=== PATIENT | male | born 1955 | race Caucasian/White ===

== ENCOUNTER → 2016-09-28 | Outpatient (REF) | payer MEDICARE ==
[~2016-09-28] MED LIST: HYDR25TAB PO; IBUP80TA PO; LOSA100T36 PO; NEUR300C PO; OMEP40CA2 PO; TIZA4CAP3 PO
[2016-09-28 14:12] LABS: ALBUMIN 4.2 GM/DL (3.2-5.2); ALBUMIN/GLOBULIN RATIO 1.35 (1.00-1.93); ALKALINE PHOSPHATASE 104 U/L (45-117); ALT/SGPT 31 U/L (12-78); ANION GAP 9 MEQ/L (8-16); AST/SGOT 27 U/L (15-37); BILIRUBIN,TOTAL 0.4 MG/DL (0.2-1.0); BLOOD UREA NITROGEN 18 MG/DL (7-18); CALCIUM LEVEL 9.7 MG/DL (8.5-10.1); CARBON DIOXIDE LEVEL 27 MEQ/L (21-32); CHLORIDE LEVEL 103 MEQ/L (98-107); CHOLESTEROL LEVEL 204 MG/DL (<200); GLOMERULAR FILTRATION RATE > 60.0 (>56); GLUCOSE, FASTING 92 MG/DL (70-105); POTASSIUM SERUM 4.2 MEQ/L (3.5-5.1); SODIUM LEVEL 139 MEQ/L (136-145); TOTAL PROTEIN 7.3 GM/DL (6.4-8.2); TRIGLYCERIDES LEVEL 316 MG/DL (<150)
[2016-10-09 14:15] LABS: BENZODIAZEPINES, URINE SCREEN Negative ng/mL (Cutoff=200); METHADONE, URINE SCREEN Negative ng/mL (Cutoff=300); OPIATES, URINE Positive ng/mL (Cutoff=300); pH, URINE 6.9 (4.5-8.9)
== END ==
LOC: M LAB REF 13:08
PROVIDERS: ATTEND Family Medicine Addiction Medicine
DX: M60.819 Other myositis, unspecified shoulder (principal); I10 Essential (primary) hypertension; Z12.5 Encounter for screening for malignant neoplasm of prostate

== ENCOUNTER → 2017-03-12 | Outpatient (REF) | payer MEDICARE ==
[2017-03-12 13:55] LABS: BASO # 0.1 10^3/uL (0.0-0.2); BASO % 0.5 % (0.0-1.0); EOS # 0.1 10^3/uL (0.0-0.50); EOS % 1.1 % (0.0-3.0); HEMOGLOBIN 15.3 g/dl (14.0-18.0); IMMATURE GRANULOCYTE # 0.1 10^3/uL (0-0); IMMATURE GRANULOCYTE % 0.4 % (0-0); LYMPH # 2.8 10^3/uL (1.5-4.5); LYMPH % 20.9 % (24.0-44.0); MEAN CORPUSCULAR HEMOGLOBIN 30.6 pg (27.0-33.0); MEAN CORPUSCULAR HGB CONC 34.8 g/dl (32.0-36.5); MONO # 0.8 10^3/uL (0.0-0.8); MONO % 5.8 % (0.0-5.0); NEUTROPHILS # 9.5 10^3/uL (1.8-7.7); NEUTROPHILS % 71.3 % (36.0-66.0); PLATELET COUNT, AUTOMATED 202 10^3/uL (150-450); RED CELL DISTRIBUTION WIDTH 13.2 % (11.5-14.5); WHITE BLOOD COUNT 13.3 10^3/uL (4.0-10.0)
[2017-03-12 14:25] LABS: ALBUMIN 4.4 GM/DL (3.2-5.2); ALBUMIN/GLOBULIN RATIO 1.52 (1.00-1.93); ALKALINE PHOSPHATASE 84 U/L (45-117); ALT/SGPT 24 U/L (12-78); ANION GAP 7 MEQ/L (8-16); AST/SGOT 30 U/L (7-37); BILIRUBIN,TOTAL 0.6 MG/DL (0.2-1.0); BLOOD UREA NITROGEN 13 MG/DL (7-18); CALCIUM LEVEL 9.5 MG/DL (8.8-10.2); CARBON DIOXIDE LEVEL 27 MEQ/L (21-32); CHLORIDE LEVEL 105 MEQ/L (98-107); CHOLESTEROL LEVEL 197 MG/DL (<200); CHOLESTEROL RISK RATIO 3.126 (<5); GLOMERULAR FILTRATION RATE > 60.0 (>49); GLUCOSE, FASTING 89 MG/DL (80-110); HDL CHOLESTEROL 63 MG/DL (>40); LDL CHOLESTEROL 106.4 MG/DL (<100); NON-HDL-C 134 MG/DL; POTASSIUM SERUM 4.1 MEQ/L (3.5-5.1); SODIUM LEVEL 139 MEQ/L (136-145); THYROID STIMULATING HORMONE 0.897 uIU/ML (0.358-3.740); TOTAL PROTEIN 7.3 GM/DL (6.4-8.2); TRIGLYCERIDES LEVEL 138 MG/DL (<150)
[2017-03-13 11:48] LABS: HEPATITIS C VIRUS ABY INDEX 8.4 INDEX (<0.8)
[2017-03-14 10:14] LABS: HEPATITIS C QUANTITATION HCV Not Detected IU/mL (.)
[2017-03-16 08:06] LABS: HCV RNA NAA QUALITATIVE Negative (Negative)
== END ==
LOC: M LAB REF 13:27
DX: B18.2 Chronic viral hepatitis C (principal); I10 Essential (primary) hypertension
CPT/HCPCS: 84443

== ENCOUNTER → 2017-08-06 | Day surgery (SDC) | payer MEDICARE ==
[~2017-08-06] MED LIST changes: -HYDR25TAB PO; -IBUP80TA PO; +LIDOCAINE 2% INJ 100 MG/5 ML SDV (FOR ANES.) As Ordered; -LOSA100T36 PO; -NEUR300C PO; -OMEP40CA2 PO; +PROPOFOL 200 MG/20 ML VIAL As Ordered; -TIZA4CAP3 PO
[2017-08-06] MEDS: NS 1,000 ML IV (08:05)
== END | disposition home or self-care (01) ==
LOC: M OPP 07:29
DX: D12.2 Benign neoplasm of ascending colon (principal); K62.5 Hemorrhage of anus and rectum; I10 Essential (primary) hypertension; K21.9 Gastro-esophageal reflux disease without esophagitis; F17.210 Nicotine dependence, cigarettes, uncomplicated; Z79.891 Long term (current) use of opiate analgesic; Z79.899 Other long term (current) drug therapy; Z86.19 Personal history of other infectious and parasitic diseases; Z80.42 Family history of malignant neoplasm of prostate; Z80.0 Family history of malignant neoplasm of digestive organs
CPT/HCPCS: 45380

== ENCOUNTER → 2018-01-27 | Outpatient (REF) | payer MEDICARE ==
[2018-01-27 14:10] LABS: ALKALINE PHOSPHATASE 100 U/L (45-117); ALT/SGPT 22 U/L (12-78); ANION GAP 11 MEQ/L (8-16); AST/SGOT 25 U/L (7-37); BILIRUBIN,TOTAL 0.6 MG/DL (0.2-1.0); BLOOD UREA NITROGEN 10 MG/DL (7-18); CALCIUM LEVEL 8.7 MG/DL (8.8-10.2); CARBON DIOXIDE LEVEL 23 MEQ/L (21-32); CHLORIDE LEVEL 103 MEQ/L (98-107); CREATININE FOR GFR 0.96 MG/DL (0.70-1.30); GLOMERULAR FILTRATION RATE > 60.0 (>49); GLUCOSE, FASTING 118 MG/DL (70-100); POTASSIUM SERUM 3.7 MEQ/L (3.5-5.1); SODIUM LEVEL 137 MEQ/L (136-145); TRIGLYCERIDES LEVEL 104 MG/DL (<150)
[2018-01-27 14:11] LABS: ALBUMIN 3.5 GM/DL (3.2-5.2); ALBUMIN/GLOBULIN RATIO 1.17 (1.00-1.93); CHOLESTEROL LEVEL 157 MG/DL (<200); CHOLESTEROL RISK RATIO 2.962 (<5); HDL CHOLESTEROL 53 MG/DL (>40); LDL CHOLESTEROL 83 MG/DL (<100); NON-HDL-C 104 MG/DL; PROSTATIC SPECIFIC AG MONITOR 1.5 NG/ML (< 4.0); THYROID STIMULATING HORMONE 0.396 uIU/ML (0.358-3.740); TOTAL PROTEIN 6.5 GM/DL (6.4-8.2)
== END ==
LOC: M LAB REF 12:01
DX: I10 Essential (primary) hypertension (principal); N40.1 Benign prostatic hyperplasia with lower urinary tract symptoms
CPT/HCPCS: 84443

== ENCOUNTER → 2020-06-06 | Outpatient (REF) | payer MEDICARE ==
[~2020-06-06] MED LIST changes: +AMIT25TA17 PO; +AMLO1TAB24 PO; +GABA-282 PO; +HYDR-2541 PO; +IBUP80TA PO; -LIDOCAINE 2% INJ 100 MG/5 ML SDV (FOR ANES.) As Ordered; +LOSA100T50 PO; +NEUR300C PO; +OMEP40CA97 PO; +OXYC10TA3 PO; -PROPOFOL 200 MG/20 ML VIAL As Ordered; +TIZA4CAP PO
[2020-06-06 14:43] LABS: ALBUMIN 4.2 GM/DL (3.2-5.2); ALT/SGPT 21 U/L (12-78); BILIRUBIN,TOTAL 0.9 MG/DL (0.2-1.0); BLOOD UREA NITROGEN 21 MG/DL (7-18); CALCIUM LEVEL 9.5 MG/DL (8.8-10.2); CARBON DIOXIDE LEVEL 26 MEQ/L (21-32); CHLORIDE LEVEL 110 MEQ/L (98-107); CHOLESTEROL LEVEL 160 MG/DL (<200); CHOLESTEROL RISK RATIO 2.962 (<5); CREATININE FOR GFR 1.03 MG/DL (0.70-1.30); GLOMERULAR FILTRATION RATE > 60.0 (>49); GLUCOSE, FASTING 90 MG/DL (70-100); HDL CHOLESTEROL 54 MG/DL (>40); LDL CHOLESTEROL 78 MG/DL (<100); NON-HDL-C 106 MG/DL; POTASSIUM SERUM 3.6 MEQ/L (3.5-5.1); SODIUM LEVEL 142 MEQ/L (136-145); TRIGLYCERIDES LEVEL 139 MG/DL (<150)
[2020-06-06 15:24] LABS: HIV 1&2 SCREEN CENTAUR NEGATIVE (NEGATIVE)
[2020-06-06 15:46] LABS: HEPATITIS C VIRUS ABY INDEX 6.9 INDEX (<0.8)
== END ==
LOC: M LAB REF 12:56
PROVIDERS: ATTEND Family Medicine Addiction Medicine
DX: Z00.00 Encounter for general adult medical examination without abnormal findings (principal); E66.9 Obesity, unspecified; E07.9 Disorder of thyroid, unspecified
CPT/HCPCS: 80053; 80061; 84443; 86803; 87389; 87521; G0103

== ENCOUNTER → 2022-01-23 | Outpatient (REF) | payer MEDICARE ==
[~2022-01-23] MED LIST changes: +LOSA100T45 PO; -LOSA100T50 PO; +OMEP40CA4 PO; -OMEP40CA97 PO
[2022-01-23 13:03] LABS: BASO # 0.1 10^3/uL (0.0-0.2); BASO % 0.7 % (0.0-1.0); EOS # 0.2 10^3/uL (0.0-0.5); EOS % 1.6 % (0.0-3.0); HEMATOCRIT 45.8 % (42.0-52.0); HEMOGLOBIN 15.1 g/dl (13.5-17.5); LYMPH # 2.7 10^3/uL (1.5-5.0); LYMPH % 26.2 % (24.0-44.0); MEAN CORPUSCULAR HEMOGLOBIN 29.8 pg (27.0-33.0); MEAN CORPUSCULAR VOLUME 90.5 fl (80.0-96.0); MONO # 0.6 10^3/uL (0.0-0.8); MONO % 5.7 % (2.0-8.0); NEUTROPHILS # 6.8 10^3/uL (1.5-8.5); NEUTROPHILS % 65.4 % (36.0-66.0); PLATELET COUNT, AUTOMATED 190 10^3/uL (150-450); RED BLOOD COUNT 5.06 10^6/uL (4.30-6.10); WHITE BLOOD COUNT 10.3 10^3/uL (4.0-10.0)
[2022-01-23 13:13] LABS: CHLORIDE LEVEL 103 MMOL/L (98-107); POTASSIUM SERUM 3.8 MMOL/L (3.5-5.1); SODIUM LEVEL 139 MMOL/L (136-145)
[2022-01-23 13:14] LABS: CARBON DIOXIDE LEVEL 29 MMOL/L (20-31)
[2022-01-23 13:19] LABS: BLOOD UREA NITROGEN 13 MG/DL (9-23)
[2022-01-23 13:20] LABS: CALCIUM LEVEL 9.5 MG/DL (8.3-10.6); GLUCOSE, FASTING 93 MG/DL (74-106)
[2022-01-23 13:21] LABS: ALT/SGPT 13 U/L (7.0-40)
[2022-01-23 13:22] LABS: BILIRUBIN,TOTAL 0.4 MG/DL (0.3-1.2); CREATININE FOR GFR 0.85 MG/DL (0.70-1.30); GLOMERULAR FILTRATION RATE > 60.0 (>49); RHEUMATOID FACTOR QUANT 7.4 IU/ML (<14); TOTAL PROTEIN 6.6 G/DL (5.7-8.2)
[2022-01-23 13:23] LABS: FREE T4 1.08 NG/DL (0.89-1.76); THYROID STIMULATING HORMONE 2.119 uIU/ML (0.55-4.78)
[2022-01-23 13:54] LABS: ERYTHROCYTE SEDIMENTATION RATE 6 mm/hr (0-20)
[2022-01-24 23:07] LABS: ANA (HEP2) Negative (.)
== END ==
LOC: M LAB REF 12:10
PROVIDERS: ATTEND Family Medicine Addiction Medicine
DX: G89.4 Chronic pain syndrome (principal); R94.6 Abnormal results of thyroid function studies

== ENCOUNTER → 2022-02-05 | Outpatient (REF) | payer MEDICARE | LOC: M LAB REF 16:21 | PROVIDERS: ATTEND Family Medicine Addiction Medicine | DX: R79.89 Other specified abnormal findings of blood chemistry (principal) ==

== ENCOUNTER → 2022-03-06 | Outpatient (REF) | payer MEDICARE ==
[2022-03-06 17:23] LABS: HEMATOCRIT 44.2 % (42.0-52.0); HEMOGLOBIN 14.9 g/dl (13.5-17.5); MEAN CORPUSCULAR HEMOGLOBIN 30.5 pg (27.0-33.0); MEAN CORPUSCULAR HGB CONC 33.7 g/dl (32.0-36.5); MEAN CORPUSCULAR VOLUME 90.6 fl (80.0-96.0); PLATELET COUNT, AUTOMATED 179 10^3/uL (150-450); RED BLOOD COUNT 4.88 10^6/uL (4.30-6.10); WHITE BLOOD COUNT 10.3 10^3/uL (4.0-10.0)
[2022-03-06 19:40] LABS: ALKALINE PHOSPHATASE 96 U/L (46-116); ALT/SGPT 18 U/L (7.0-40); AST/SGOT 30 U/L (<34); BILIRUBIN,TOTAL 0.4 MG/DL (0.3-1.2); BLOOD UREA NITROGEN 14 MG/DL (9-23); CALCIUM LEVEL 9.4 MG/DL (8.3-10.6); CARBON DIOXIDE LEVEL 28 MMOL/L (20-31); CHLORIDE LEVEL 104 MMOL/L (98-107); GLOMERULAR FILTRATION RATE > 60.0 (>49); GLUCOSE, FASTING 82 MG/DL (74-106); POTASSIUM SERUM 4.1 MMOL/L (3.5-5.1); SODIUM LEVEL 140 MMOL/L (136-145); TOTAL PROTEIN 6.5 G/DL (5.7-8.2)
== END ==
LOC: M LAB REF 16:27
PROVIDERS: ATTEND Family Medicine Addiction Medicine
DX: K40.90 Unilateral inguinal hernia, without obstruction or gangrene, not specified as recurrent (principal)

== ENCOUNTER → 2022-03-25 | Outpatient (CLI) | payer MEDICARE ==
[~2022-03-25] MED LIST changes: +BUPR1FIL37 SL; +DULO1CAP6 PO; +HYDR-3490 PO
== END ==
LOC: M LABSMTC 11:26
PROVIDERS: ATTEND Anesthesiology
DX: Z01.812 Encounter for preprocedural laboratory examination (principal); Z11.52 Encounter for screening for COVID-19

== ENCOUNTER 2022-03-28 07:23 | Day surgery (SDC) | payer MEDICARE ==
[~2022-03-28] VITALS: Ht 175.3 cm; Wt 81.6 kg
[~2022-03-28 07:23] MED LIST changes: +CelecoXIB 400 MG CAP PO ONE; +ceFAZolin SOD 2 GM in IV 1 EA IV ONE
[2022-03-28] MEDS ORDERED: LIDOCAINE 1% SDV 5ML VIAL SC PRN (07:50)
[2022-03-28] MEDS ORDERED: LR 1,000 ML IV SCH (07:50)
[2022-03-28] MEDS ORDERED: LIDOCAINE 2% 100MG/5ML SDV (FOR ANES.) As Ordered ONE (08:27)
[2022-03-28] MEDS ORDERED: MIDAZOLAM INJ 2MG/2ML VIAL As Ordered ONE (08:27)
[2022-03-28] MEDS ORDERED: propofoL 200 MG/20 ML VIAL As Ordered ONE ×2 (08:27→11:20)
[2022-03-28] MEDS ORDERED: ROCURONIUM BROMIDE 50MG/5ML VIAL As Ordered ONE (08:27)
[2022-03-28] MEDS ORDERED: fentaNYL 250 MCG/5 ML INJECTION As Ordered ONE (08:27)
[2022-03-28] MEDS ORDERED: BUPIVACAINE HCL 0.25% 30ML VIAL As Ordered ONE (09:28)
[2022-03-28] MEDS ORDERED: LIDOCAINE 1% SDV 30ML VIAL As Ordered ONE (09:28)
[2022-03-28] MEDS ORDERED: ONDANSETRON 4MG 2ML VIAL As Ordered ONE (10:02)
[2022-03-28] MEDS ORDERED: ACETAMINOPHEN 1000MG 100ML IV BAG As Ordered ONE (10:17)
[2022-03-28] MEDS ORDERED: KETOROLAC 60MG 2ML VIAL As Ordered ONE (10:23)
[2022-03-28] MEDS ORDERED: IBUPROFEN 600MG TAB PO PRN (12:20)
[2022-03-28 13:00] VITALS: BP 140/87
[2022-03-28] MEDS ORDERED: KETOROLAC 30 MG/ML 1ML VIAL IV SCH (17:00)
== END 2022-03-28 13:25 | disposition home or self-care (01) ==
LOC: M SDC 07:23
PROVIDERS: ATTEND Surgery
DX: K40.90 Unilateral inguinal hernia, without obstruction or gangrene, not specified as recurrent (principal); D17.72 Benign lipomatous neoplasm of other genitourinary organ; I10 Essential (primary) hypertension; F41.9 Anxiety disorder, unspecified; F32.A Depression, unspecified; Z86.19 Personal history of other infectious and parasitic diseases; M19.90 Unspecified osteoarthritis, unspecified site; M54.9 Dorsalgia, unspecified; Z79.899 Other long term (current) drug therapy; Z79.891 Long term (current) use of opiate analgesic
CPT/HCPCS: 49650; C1781; J0690; J1100; J2250; J2405; J3010; S2900

== ENCOUNTER → 2022-04-03 | Outpatient (REF) | payer MEDICARE ==
[~2022-04-03] MED LIST changes: -CelecoXIB 400 MG CAP PO ONE; -ceFAZolin SOD 2 GM in IV 1 EA IV ONE
[2022-04-03 17:06] LABS: BASO # 0.1 10^3/uL (0.0-0.2); BASO % 0.5 % (0.0-1.0); EOS # 0.2 10^3/uL (0.0-0.5); EOS % 2.3 % (0.0-3.0); HEMATOCRIT 43.4 % (42.0-52.0); HEMOGLOBIN 14.8 g/dl (13.5-17.5); LYMPH # 3.1 10^3/uL (1.5-5.0); LYMPH % 31.6 % (24.0-44.0); MEAN CORPUSCULAR HEMOGLOBIN 30.3 pg (27.0-33.0); MEAN CORPUSCULAR HGB CONC 34.1 g/dl (32.0-36.5); MEAN CORPUSCULAR VOLUME 88.9 fl (80.0-96.0); MONO # 0.7 10^3/uL (0.0-0.8); NEUTROPHILS # 5.8 10^3/uL (1.5-8.5); NEUTROPHILS % 58.2 % (36.0-66.0); PLATELET COUNT, AUTOMATED 189 10^3/uL (150-450); RED BLOOD COUNT 4.88 10^6/uL (4.30-6.10); WHITE BLOOD COUNT 9.9 10^3/uL (4.0-10.0)
[2022-04-03 17:52] LABS: C REACTIVE PROTEIN QUANTITATIV < 0.40 MG/DL (<1.0)
[2022-04-05 18:07] LABS: CYCLIC CITRULLINATED PEPTIDE 2 units (0-19); SSA SJOGRENS A 0.3 AI (0.0-0.9); SSB SJOGRENS B <0.2 AI (0.0-0.9)
== END ==
LOC: M LAB REF 11:26
PROVIDERS: ATTEND Family Medicine Addiction Medicine
DX: M25.50 Pain in unspecified joint (principal)

== ENCOUNTER → 2024-02-18 | Outpatient (REF) | payer MEDICARE ==
[~2024-02-18] MED LIST changes: -AMIT25TA17 PO; +AMIT25TA19 PO; +GABA-1172 PO; -GABA-282 PO; -LOSA100T45 PO; +LOSA100T46 PO
[2024-02-18 14:32] LABS: ALBUMIN 3.9 G/DL (3.2-5.2); ALKALINE PHOSPHATASE 100 U/L (40-129); ALT/SGPT 19 U/L (7.0-40); AST/SGOT 23 U/L (<34); BILIRUBIN,TOTAL 0.3 MG/DL (0.3-1.2); BLOOD UREA NITROGEN 22 MG/DL (9-23); CALCIUM LEVEL 9.7 MG/DL (8.3-10.6); CARBON DIOXIDE LEVEL 26 MMOL/L (20-31); CHLORIDE LEVEL 106 MMOL/L (98-107); CHOLESTEROL LEVEL 200 MG/DL (<200); CHOLESTEROL RISK RATIO 3.49 (<5); CREATININE FOR GFR 0.95 MG/DL (0.70-1.30); GLOMERULAR FILTRATION RATE > 60.0 (>49); GLUCOSE, FASTING 90 MG/DL (74-106); HDL CHOLESTEROL 57.2 MG/DL (>40); NON-HDL-C 142.8 MG/DL; POTASSIUM SERUM 3.5 MMOL/L (3.5-5.1); SODIUM LEVEL 140 MMOL/L (136-145); TOTAL PROTEIN 7.2 G/DL (5.7-8.2); TRIGLYCERIDES LEVEL 184 MG/DL (<150)
[2024-02-18 14:33] LABS: THYROID STIMULATING HORMONE 4.778 uIU/ML (0.55-4.78)
== END ==
LOC: M LAB REF 13:14
PROVIDERS: ATTEND Family Medicine Addiction Medicine
DX: I10 Essential (primary) hypertension (principal)

== ENCOUNTER → 2024-10-22 | Outpatient (REF) | payer MEDICARE ==
[2024-10-22 14:13] LABS: ALT/SGPT 19.0 U/L (7.0-40); AST/SGOT 27.0 U/L (<34); CALCIUM LEVEL 9.7 MG/DL (8.3-10.6); CARBON DIOXIDE LEVEL 26.0 MMOL/L (20-31); CHLORIDE LEVEL 105.0 MMOL/L (98-107); CHOLESTEROL LEVEL 168.0 MG/DL (<200); CHOLESTEROL RISK RATIO 3.31 (<5); CREATININE FOR GFR 0.97 MG/DL (0.70-1.30); GLOMERULAR FILTRATION RATE 85.6 (>49); LDL CHOLESTEROL 94.5 MG/DL (<100); NON-HDL-C 117.3 MG/DL; POTASSIUM SERUM 3.7 MMOL/L (3.5-5.1); SODIUM LEVEL 142.0 MMOL/L (136-145); TRIGLYCERIDES LEVEL 114.0 MG/DL (<150)
== END ==
LOC: M LAB REF 12:23
PROVIDERS: ATTEND Family Medicine Addiction Medicine
DX: I10 Essential (primary) hypertension (principal)